=== PATIENT | female | born 1970 | race Hispanic/Latino ===

== ENCOUNTER 2017-03-07 02:37 | Emergency (ER) | payer MEDICAID ==
[2017-03-07 03:10] VITALS: BP 133/73; PULSE 76; RESP 16; TEMP 98; O2SAT 100
--- NOTE | 2017-03-07 03:22 | ED PDOC ---
HPI: Abdomen Time Seen by Provider: 03/07/17 03:17 Chief Complaint (Nursing): Abdominal Pain Chief Complaint (Provider): vomiting and diarrhea History Per: Patient Additional Complaint(s): 47-year-old female presents to emergency department with vomiting and nonbloody , watery diarrhea that started yesterday after patient ate food at a barbecue. Patient is concerned that the food may have been undercooked. Patient unable to keep down any liquids or solids since yesterday. She denies fever or chills. Patient has diffuse abdominal discomfort. Past Medical History Reviewed: Historical Data, Nursing Documentation, Vital Signs Vital Signs: Last Vital Signs Temp 98.0 F 03/07/17 03:07 Pulse 76 03/07/17 03:07 Resp 16 03/07/17 03:07 BP 133/73 03/07/17 03:07 Pulse Ox 100 03/07/17 03:48 - Medical History PMH: Depression, Diabetes - Surgical History Surgical History: Appendectomy, Cholecystectomy, - Family History Family History: States: No Known Family Hx - Living Arrangements Living Arrangements: With Family - Social History Current smoker - smoking cessation education provided: No Alcohol: None Drugs: Denies - Home Medications Home Medications: Ambulatory Orders Medication Instructions Recorded Cyclobenzaprine [Cyclobenzaprine 10 mg PO BID #14 tab 10/25/15 HCl] Ibuprofen [Motrin] 400 mg PO Q6 #30 tab 10/25/15 metFORMIN [glucOPHAGE] 500 mg PO DAILY 10/25/15 Ferrous Sulfate [Feosol] 325 mg PO TID #15 tab 07/25/16 Dicyclomine [Dicyclomine HCl] 10 mg PO QID PRN #15 cap 03/07/17 Ondansetron [Zofran Odt] 4 mg PO ASDIR PRN #15 odt 03/07/17 - Allergies Allergies/Adverse Reactions: Allergies Allergy/AdvReac Type Severity Reaction Status Date / Time No Known Allergies Allergy Verified 08/24/14 14:22 Review of Systems ROS Statement: Except As Marked, All Systems Reviewed And Found Negative Constitutional: Negative for: Fever, Chills Respiratory: Negative for: Cough Gastrointestinal: Positive for: Nausea, Vomiting, Abdominal Pain, Diarrhea. Negative for: Constipation, Melena, Hematochezia, Hematemesis, Rectal Pain Genitourinary Female: Negative for: Dysuria Physical Exam - Reviewed Nursing Documentation Reviewed: Yes Vital Signs Reviewed: Yes - Physical Exam Appears: Positive for: Well, Non-toxic, No Acute Distress Skin: Negative for: Rash Eye Exam: Positive for: Normal appearance Cardiovascular/Chest: Positive for: Regular Rate, Rhythm Respiratory: Positive for: Normal Breath Sounds Gastrointestinal/Abdominal: Positive for: Other (Obese abdomen with minimal tenderness in all 4 quadrants, no distention, no guarding, no rebound, normoactive bowel sounds in all 4 quadrants) Back: Negative for: L CVA Tenderness, R CVA Tenderness Extremity: Positive for: Normal ROM Neurologic/Psych: Positive for: Alert, Oriented - Laboratory Results Result Diagrams: 03/07/17 04:02 03/07/17 04:02 Urine POC: Negative Urine dip results: Positive for: Bilirubin (small). Negative for: Leukocyte Esterase (trace), Blood, Nitrate, Ketones, Glucose, Protein - ECG O2 Sat by Pulse Oximetry: 100 Pulse Ox Interpretation: Normal Medical Decision Making Medical Decision Makin-year-old with vomiting and diarrhea, abdominal exam benign. Plan: CBC CMP Lipase IVF IV zofran IV toradol Urine dip Patient is aware of all diagnostic testing results, all questions answered. Patient now able to tolerate water without further emesis. She states pain and nausea have resolved. Rx given for Zofran and Bentyl. Patient was instructed should plenty of fluids and follow bland diet. Advised follow-up with her doctor in 2-3 days. Disposition - Clinical Impression Clinical Impression: Gastroenteritis - Patient ED Disposition Is Patient to be Admitted: No Counseled Patient/Family Regarding: Studies Performed, Diagnosis, Need For Followup, Rx Given - Disposition Referrals: Evon Ruiz FNP [Advanced Practice Nurse] - Disposition: Routine/Home Disposition Time: 04:25 Condition: STABLE Additional Instructions: Take prescription medications as directed. Drink plenty of fluids and follow dietary instructions. Follow up with primary doctor in 2-3 days. Prescriptions: Dicyclomine [Dicyclomine HCl] 10 mg PO QID PRN #15 cap PRN Reason: Gi Distress Ondansetron [Zofran Odt] 4 mg PO ASDIR PRN #15 odt PRN Reason: Nausea/Vomiting Instructions: Gastroenteritis (ED) Forms: [employer] (Slovak) Print Language: WELSH Results - Lab Results Lab Results: 03/07/17 03/07/17 04:02 04:02 WBC 9.1 D RBC 4.85 Hgb 13.8 D Hct 41.1 MCV 84.7 D MCH 28.5 MCHC 33.6 RDW 15.2 H Plt Count 265 MPV 8.8 Neut % (Auto) 79.2 H Lymph % (Auto) 12.1 L [place] % (Auto) 4.9 Eos % (Auto) 3.3 Baso % (Auto) 0.5 Neut # 7.2 H Lymph # 1.1 [place] # 0.4 Eos # 0.3 Baso # 0.0 Sodium 142 Potassium 4.1 Chloride 105 Carbon Dioxide 20 L Anion Gap 21 H BUN 22 H Creatinine 0.5 L Est GFR ( Amer) > 60 Est GFR (Non-Af Amer) > 60 Random Glucose 109 H Calcium 8.8 Total Bilirubin 0.3 AST 41 H ALT 66 H D Alkaline Phosphatase 77 Total Protein 8.1 Albumin 4.5 Globulin 3.6 Albumin/Globulin Ratio 1.3 Lipase 118
[2017-03-07] MEDS ORDERED: Sodium Chloride 0.9% 1,000 ML IV STA (03:23)
[2017-03-07 04:05] LABS: BASO % 0.5 % (0.0-2.0); EOS # 0.3 K/uL (0.0-0.7); EOS % 3.3 % (0.0-4.0); HEMATOCRIT 41.1 % (34.0-47.0); LYMPH # 1.1 K/uL (1.0-4.3); LYMPH % 12.1 % (20.0-40.0); MEAN CELL VOLUME 84.7 fl (81.0-99.0); MEAN CORPUSCULAR HEMOGLOBIN 28.5 pg (27.0-31.0); MEAN CORPUSCULAR HGB CONC 33.6 g/dL (33.0-37.0); MEAN PLATELET VOLUME 8.8 fl (7.2-11.7); MONO # 0.4 K/uL (0.0-0.8); MONO % 4.9 % (0.0-10.0); NEUT # 7.2 K/uL (1.8-7.0); NEUT % 79.2 % (50.0-75.0); NRBC % 0.1 % (0.0-0.0); RED CELL DISTRIBUTION WIDTH 15.2 % (11.5-14.5); WHITE BLOOD COUNT 9.1 K/uL (4.8-10.8)
[2017-03-07 04:16] LABS: ALB/GLOB RATIO 1.3 (1.0-2.1); ALKALINE PHOSPHATASE 77 U/L (38-126); ALT/SGPT 66 U/L (9-52); AST/SGOT 41 U/L (14-36); BILIRUBIN,TOTAL 0.3 mg/dl (0.2-1.3); BLOOD UREA NITROGEN 22 mg/dl (7-17); CALCIUM 8.8 mg/dL (8.4-10.2); CARBON DIOXIDE 20 mmol/L (22-30); CHLORIDE 105 mmol/L (98-107); GFR AFRICAN-AMERICAN > 60; GLUCOSE,RANDOM 109 mg/dL (65-105); LIPASE 118 U/L (23-300); POTASSIUM 4.1 MMOL/L (3.6-5.0); SODIUM 142 mmol/l (132-148); TOTAL PROTEIN 8.1 G/DL (6.3-8.2)
== END 2017-03-07 04:49 | disposition home or self-care (01) ==
LOC: H.ER 02:37
DX: K52.9 Noninfective gastroenteritis and colitis, unspecified (principal); E11.9 Type 2 diabetes mellitus without complications; F32.9 Major depressive disorder, single episode, unspecified; Z79.84 Long term (current) use of oral hypoglycemic drugs
CPT/HCPCS: 80053; 83690; 85025; 96374; 96375; 99283; J1885; J2405; J7040

== ENCOUNTER 2017-03-07 20:23 | Emergency (ER) | payer MEDICAID ==
[2017-03-07 20:43] VITALS: BP 132/64; PULSE 92; RESP 16; TEMP 98.5; O2SAT 96
[2017-03-07] MEDS ORDERED: Iohexol 240 (50 ml) PO ONE (21:00)
[2017-03-07] MEDS ORDERED: Sodium Chloride 0.9% 1,000 ML IV STA ×2 (21:00→23:40)
[2017-03-07 21:19] LABS: BASO % 0.2 % (0.0-2.0); EOS # 0.1 K/uL (0.0-0.7); EOS % 1.7 % (0.0-4.0); HEMATOCRIT 40.3 % (34.0-47.0); LYMPH # 1.1 K/uL (1.0-4.3); LYMPH % 13.6 % (20.0-40.0); MEAN CELL VOLUME 85.2 fl (81.0-99.0); MEAN CORPUSCULAR HEMOGLOBIN 28.2 pg (27.0-31.0); MEAN CORPUSCULAR HGB CONC 33.1 g/dL (33.0-37.0); MEAN PLATELET VOLUME 8.3 fl (7.2-11.7); MONO # 0.4 K/uL (0.0-0.8); NEUT # 6.6 K/uL (1.8-7.0); NEUT % 79.5 % (50.0-75.0); NRBC % 0.1 % (0.0-0.0); RED CELL DISTRIBUTION WIDTH 15.8 % (11.5-14.5); WHITE BLOOD COUNT 8.3 K/uL (4.8-10.8)
[2017-03-07] MEDS ORDERED: Iohexol 240 (50 ml) ONE (21:19)
[2017-03-07 21:31] LABS: ALB/GLOB RATIO 1.3 (1.0-2.1); ALKALINE PHOSPHATASE 82 U/L (38-126); ALT/SGPT 82 U/L (9-52); AST/SGOT 58 U/L (14-36); BILIRUBIN,TOTAL 0.5 mg/dl (0.2-1.3); BLOOD UREA NITROGEN 13 mg/dl (7-17); CALCIUM 7.8 mg/dL (8.4-10.2); CARBON DIOXIDE 14 mmol/L (22-30); CHLORIDE 108 mmol/L (98-107); GFR AFRICAN-AMERICAN > 60; GLUCOSE,RANDOM 121 mg/dL (65-105); LIPASE 51 U/L (23-300); POTASSIUM 3.7 MMOL/L (3.6-5.0); SODIUM 137 mmol/l (132-148); TOTAL PROTEIN 7.5 G/DL (6.3-8.2)
--- NOTE | 2017-03-07 21:34 | ED PDOC ---
HPI:Nausea, Vomiting, Diarrhea Time Seen by Provider: 03/07/17 20:35 Chief Complaint (Nursing): Dizziness/Lightheaded Chief Complaint (Provider): Vomiting and Diarrhea History Per: Patient History/Exam Limitations: no limitations Onset/Duration Of Symptoms: Hrs (24), Worse Since (24 hrs) Current Symptoms Are (Timing): Still Present Associated Symptoms: Nausea, Vomiting, Diarrhea, Other (generalized body weakness) Additional Complaint(s): Shiva Cook is a 47 year old female, with a past medical history of diabetes , who presents to the emergency department complaining of worsening nausea, vomit, and diarrhea associated with generalized body weakness for the last 24 hours. Patient was seen in this facility approximately 12 hours ago with diagnosed gastroenteritis. 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 Patient reports a worsening diarrhea considerably with 15 to 20 non-bloody episodes. No further medical complaints. PMD: Evon Ruiz Past Medical History Reviewed: Historical Data, Nursing Documentation, Vital Signs Vital Signs: Last Vital Signs Temp 98.5 F 03/07/17 20:39 Pulse 92 H 03/07/17 20:39 Resp 16 03/07/17 20:39 BP 132/64 03/07/17 20:39 Pulse Ox 96 03/07/17 20:39 - Medical History PMH: Depression, Diabetes - Surgical History Surgical History: Appendectomy, Cholecystectomy, - Family History Family History: States: Unknown Family Hx - Social History Current smoker - smoking cessation education provided: No Alcohol: None Drugs: Denies - Home Medications Home Medications: Ambulatory Orders Medication Instructions Recorded Cyclobenzaprine [Cyclobenzaprine 10 mg PO BID #14 tab 10/25/15 HCl] Ibuprofen [Motrin] 400 mg PO Q6 #30 tab 10/25/15 metFORMIN [glucOPHAGE] 500 mg PO DAILY 10/25/15 Ferrous Sulfate [Feosol] 325 mg PO TID #15 tab 07/25/16 Dicyclomine [Dicyclomine HCl] 10 mg PO QID PRN #15 cap 03/07/17 Ondansetron [Zofran Odt] 4 mg PO ASDIR PRN #15 odt 03/07/17 Dicyclomine [Bentyl] 20 mg PO Q12 PRN #20 tab 03/08/17 - Allergies Allergies/Adverse Reactions: Allergies Allergy/AdvReac Type Severity Reaction Status Date / Time No Known Allergies Allergy Verified 08/24/14 14:22 Review of Systems ROS Statement: Except As Marked, All Systems Reviewed And Found Negative Constitutional: Positive for: Weakness (generalized ) Gastrointestinal: Positive for: Nausea, Vomiting, Diarrhea (15 to 20 non-bloody episodes) Physical Exam - Reviewed Nursing Documentation Reviewed: Yes Vital Signs Reviewed: Yes - Physical Exam Appears: Positive for: Non-toxic Head Exam: Positive for: ATRAUMATIC, NORMAL INSPECTION, NORMOCEPHALIC Skin: Positive for: Normal Color, Warm, Dry Eye Exam: Positive for: EOMI, Normal appearance, PERRL Neck: Positive for: Normal, Painless ROM, Supple Cardiovascular/Chest: Positive for: Regular Rate, Rhythm. Negative for: Murmur Respiratory: Positive for: Normal Breath Sounds. Negative for: Respiratory Distress Gastrointestinal/Abdominal: Positive for: Normal Exam, Bowel Sounds, Soft, Tenderness (diffused abdominal) Back: Positive for: Normal Inspection (No midline tenderness). Negative for: L CVA Tenderness, R CVA Tenderness Extremity: Positive for: Normal ROM. Negative for: Pedal Edema, Deformity, Swelling Neurologic/Psych: Positive for: Alert, Oriented. Negative for: Motor/Sensory Deficits - Laboratory Results Result Diagrams: 03/07/17 21:15 03/07/17 21:15 - ECG O2 Sat by Pulse Oximetry: 96 (RA) Pulse Ox Interpretation: Normal Medical Decision Making Medical Decision Making: Initial Impression: 47 y/o female with persistent vomiting and diarrhea Initial Plan: --Abd Pelvis PO & IV Contrast [CT] --CMP --Lipase --Urine dipstick --Urine --CBC w/ differential --Bentyl 20 mg PO --Omnipaque 240 50 ml PO --NS IV 1,000 ml @ 1,000 mls/hr --Zofran Inj 4 mg IV --Urinalysis --reevaluation [facility] Final Radiology Report Call: [phone] assistance Online chat: [email or web address] Patient Name: SHIVA COOK (Age): 1970 47 Gender: F Date of Exam: 03/07/2017 Referring Physician: Adriano Chamberlain # of Images: [phone] Ordered As: CT ABD PELVIS PO IV CONTRAST Page 1 of 2 EXAM: CT Abdomen and Pelvis With Intravenous Contrast CLINICAL HISTORY: 47 years old, female; Pain; Abdominal pain; Generalized; Prior surgery; Surgery date: 6+ months; Surgery type: Gall bladder removed; Additional info: Abd pain, diarrhea TECHNIQUE: Axial computed tomography images of the abdomen and pelvis with intravenous contrast. All CT scans at this facility use one or more dose reduction techniques, viz.: automated exposure control; ma/kV adjustment per patient size (including targeted exams where dose is matched to indication; i.e. head); or iterative reconstruction technique. Coronal and sagittal reformatted images were created and reviewed. CONTRAST: 95 mL of [id number] administered intravenously. COMPARISON: CT - ABD PELVIS PO IV CONTRAST 07/25/2016 6:05:27 PM FINDINGS: Limitations: Motion artifact - mild. Lower thorax: No acute findings. ABDOMEN: Liver: Fatty infiltration. Gallbladder and bile ducts: Cholecystectomy. No ductal dilation. Pancreas: No ductal dilation. No mass. Spleen: No splenomegaly. Adrenals: No mass. Kidneys and ureters: No mass. No hydronephrosis. Stomach and bowel: No definite mural thickening. No obstruction. Appendix: Appendectomy. PELVIS: Bladder: Unremarkable. Reproductive: 1.5 x 0.9 x 1.4 cm peripherally enhancing hypodensity with crenulated margins within RIGHT ovary. ABDOMEN and PELVIS: Intraperitoneal space: No significant fluid collection. No free air. Bones/joints: No acute fracture. Soft tissues: Unremarkable. Vasculature: Unremarkable. No aneurysm. Lymph nodes: No pathologically enlarged lymph nodes. IMPRESSION: 1. Involuting or ruptured RIGHT ovarian follicle/cyst. 2. Incidental/non-acute findings are described above. Thank you for allowing us to participate in the care of your patient. Dictated and Authenticated by: Demetrius Reaves MD 03/08/2017 12:09 AM Eastern Time ([place] & [place]) 00:25: on reevaluation the patient reports improvement of symptoms. Labs reviewed and discussed with patient, labs revealed no clinically significant findings. Patient is stable for discharge. Diagnosis: gastroenteritis. Scribe Attestation: Documented by Kevin Salcedo and Dulce Douglas, acting as a scribe for Adriano Chamberlain MD Provider Scribe Attestation: All medical record entries made by the Scribe were at my direction and personally dictated by me. I have reviewed the chart and agree that the record accurately reflects my personal performance of the history, physical exam, medical decision making, and the department course for this patient. I have also personally directed, reviewed, and agree with the discharge instructions and disposition. Disposition - Clinical Impression Clinical Impression: Gastroenteritis, Dehydration Doctor Will See Patient In The: Office Counseled Patient/Family Regarding: Studies Performed, Diagnosis, Need For Followup - Disposition Disposition: Routine/Home Disposition Time: 00:20 Condition: STABLE Prescriptions: Dicyclomine [Bentyl] 20 mg PO Q12 PRN #20 tab PRN Reason: abdominal pain/diarrhea Forms: [facility] [employer] (Sierra Leonean) Print Language: BELGIAN - POA Present On Arrival: None
[2017-03-07 21:42] LABS: RBC URINE 3 /hpf (0-3); URINE BACTERIA RARE (<OCC); URINE BILIRUBIN NEGATIVE (NEGATIVE); URINE BLOOD NEGATIVE (NEGATIVE); URINE COLOR YELLOW (YELLOW); URINE GLUCOSE (UA) NEG (Normal); URINE KETONE NEGATIVE (NEGATIVE); URINE LEUKOCYTE ESTERASE NEG Leu/uL (Negative); URINE PROTEIN 30 mg/dL (NEGATIVE); URINE UROBILINOGEN 0.2-1.0 mg/dL (0.2-1.0); WBC URINE 2 /hpf (0-5)
[2017-03-07] MEDS ORDERED: Sodium Chloride 0.9% 50 ML IV ONE (23:36)
[2017-03-07] MEDS ORDERED: Iohexol 300 100 ML IJ ONE (23:36)
--- NOTE | 2017-03-08 00:09 | CT ---
EXAM: CT Abdomen and Pelvis With Intravenous Contrast CLINICAL HISTORY: 47 years old, female; Pain; Abdominal pain; Generalized; Prior surgery; Surgery date: 6+ months; Surgery type: Gall bladder removed; Additional info: Abd pain, diarrhea TECHNIQUE: Axial computed tomography images of the abdomen and pelvis with intravenous contrast. All CT scans at this facility use one or more dose reduction techniques, viz.: automated exposure control; ma/kV adjustment per patient size (including targeted exams where dose is matched to indication; i.e. head); or iterative reconstruction technique. Coronal and sagittal reformatted images were created and reviewed. CONTRAST: 95 mL of [id number] administered intravenously. COMPARISON: CT - ABD PELVIS PO IV CONTRAST 07/25/2016 6:05:27 PM FINDINGS: Limitations: Motion artifact - mild. Lower thorax: No acute findings. ABDOMEN: Liver: Fatty infiltration. Gallbladder and bile ducts: Cholecystectomy. No ductal dilation. Pancreas: No ductal dilation. No mass. Spleen: No splenomegaly. Adrenals: No mass. Kidneys and ureters: No mass. No hydronephrosis. Stomach and bowel: No definite mural thickening. No obstruction. Appendix: Appendectomy. PELVIS: Bladder: Unremarkable. Reproductive: 1.5 x 0.9 x 1.4 cm peripherally enhancing hypodensity with crenulated margins within RIGHT ovary. ABDOMEN and PELVIS: Intraperitoneal space: No significant fluid collection. No free air. Bones/joints: No acute fracture. Soft tissues: Unremarkable. Vasculature: Unremarkable. No aneurysm. Lymph nodes: No pathologically enlarged lymph nodes. IMPRESSION: 1. Involuting or ruptured RIGHT ovarian follicle/cyst. 2. Incidental/non-acute findings are described above.
== END 2017-03-08 01:10 | disposition home or self-care (01) ==
LOC: H.ER 20:23
DX: K52.9 Noninfective gastroenteritis and colitis, unspecified (principal); E86.0 Dehydration; E11.9 Type 2 diabetes mellitus without complications; Z79.84 Long term (current) use of oral hypoglycemic drugs; F32.9 Major depressive disorder, single episode, unspecified; N83.201 Unspecified ovarian cyst, right side
CPT/HCPCS: 74177; 80053; 81003; 81025; 83690; 85025; 96374; 99284; J2270; J2405; J7040; Q9966; Q9967

== ENCOUNTER 2017-03-24 22:44 | Emergency (ER) | payer MEDICAID ==
[2017-03-24 23:02] VITALS: BP 112/53; PULSE 63; RESP 20
[2017-03-24] MEDS ORDERED: Sodium Chloride 0.9% 1,000 ML IV STA (23:18)
--- NOTE | 2017-03-24 23:22 | ED PDOC ---
HPI: Headache Time Seen by Provider: 03/24/17 23:07 Chief Complaint (Nursing): Headache Chief Complaint (Provider): headache History Per: Patient, Family History/Exam Limitations: no limitations Onset/Duration Of Symptoms: Days (4), Waxing/Waning Current Symptoms Are (Timing): Still Present Associated Symptoms: Photophobia Additional History Per: Patient, Family Additional Complaint(s): 47 y/o female history of diabetes presents with intermittent headache x 4 days. Associated photophobia, and dizziness when getting up and ambulating. Patient taking Tylenol without improvement; states she is not able to sleep at night. Denies fever, neck pain, nausea/vomiting, chest pain, shortness of breath , palpitations, abdominal pain. Past Medical History Reviewed: Historical Data, Nursing Documentation, Vital Signs Vital Signs: Last Vital Signs Temp 98.3 F 03/24/17 22:59 Pulse 63 03/24/17 22:59 Resp 20 03/24/17 22:59 BP 112/53 L 03/24/17 22:59 Pulse Ox 100 03/24/17 22:59 - Medical History PMH: Depression, Diabetes - Surgical History Surgical History: Appendectomy, Cholecystectomy, - Family History Family History: States: Unknown Family Hx - Home Medications Home Medications: Ambulatory Orders Medication Instructions Recorded Cyclobenzaprine [Cyclobenzaprine 10 mg PO BID #14 tab 10/25/15 HCl] Ibuprofen [Motrin] 400 mg PO Q6 #30 tab 10/25/15 metFORMIN [glucOPHAGE] 500 mg PO DAILY 10/25/15 Ferrous Sulfate [Feosol] 325 mg PO TID #15 tab 07/25/16 Dicyclomine [Dicyclomine HCl] 10 mg PO QID PRN #15 cap 03/07/17 Ondansetron [Zofran Odt] 4 mg PO ASDIR PRN #15 odt 03/07/17 Dicyclomine [Bentyl] 20 mg PO Q12 PRN #20 tab 03/08/17 Meclizine [Meclizine*] 25 mg PO TID PRN #21 tab 03/25/17 Naproxen [Naprosyn] 500 mg PO Q12 PRN #20 tablet 03/25/17 - Allergies Allergies/Adverse Reactions: Allergies Allergy/AdvReac Type Severity Reaction Status Date / Time No Known Allergies Allergy Verified 08/24/14 14:22 Review of Systems ROS Statement: Except As Marked, All Systems Reviewed And Found Negative Neurological: Positive for: Headache, Dizziness Physical Exam - Reviewed Nursing Documentation Reviewed: Yes Vital Signs Reviewed: Yes - Physical Exam Appears: Positive for: Well, Non-toxic, No Acute Distress Head Exam: Positive for: ATRAUMATIC, NORMAL INSPECTION, NORMOCEPHALIC Skin: Positive for: Normal Color Eye Exam: Positive for: Normal appearance, EOMI, PERRL ENT: Positive for: Normal ENT Inspection Cardiovascular/Chest: Positive for: Regular Rate, Rhythm Respiratory: Positive for: Normal Breath Sounds Gastrointestinal/Abdominal: Positive for: Normal Exam Back: Positive for: Normal Inspection Extremity: Positive for: Normal ROM Neurologic/Psych: Positive for: Alert, Oriented - Laboratory Results Result Diagrams: 03/24/17 23:50 03/24/17 23:50 - ECG ECG: Positive for: Viewed By Me (reviewed by ED attending) ECG Rhythm: Positive for: Sinus Rhythm O2 Sat by Pulse Oximetry: 100 Disposition - Clinical Impression Clinical Impression: Headache, Dizziness - Patient ED Disposition Is Patient to be Admitted: No Counseled Patient/Family Regarding: Studies Performed, Diagnosis, Need For Followup, Rx Given - Disposition Disposition: Routine/Home Disposition Time: 01:24 Condition: IMPROVED Prescriptions: Meclizine [Meclizine*] 25 mg PO TID PRN #21 tab PRN Reason: Dizziness Naproxen [Naprosyn] 500 mg PO Q12 PRN #20 tablet PRN Reason: Pain, Moderate (4-7) Instructions: Acute Headache (ED), Dizziness (ED) Print Language: [place] ISLANDER
[2017-03-25 00:02] LABS: BASO % 0.8 % (0.0-2.0); EOS # 0.2 K/uL (0.0-0.7); EOS % 3.8 % (0.0-4.0); HEMATOCRIT 36.2 % (34.0-47.0); LYMPH # 3.1 K/uL (1.0-4.3); LYMPH % 48.5 % (20.0-40.0); MEAN CELL VOLUME 82.9 fl (81.0-99.0); MEAN CORPUSCULAR HEMOGLOBIN 27.9 pg (27.0-31.0); MEAN CORPUSCULAR HGB CONC 33.6 g/dL (33.0-37.0); MEAN PLATELET VOLUME 8.3 fl (7.2-11.7); MONO # 0.5 K/uL (0.0-0.8); MONO % 7.4 % (0.0-10.0); NEUT # 2.5 K/uL (1.8-7.0); NEUT % 39.5 % (50.0-75.0); NRBC % 0.2 % (0.0-0.0); RED CELL DISTRIBUTION WIDTH 15.2 % (11.5-14.5); WHITE BLOOD COUNT 6.4 K/uL (4.8-10.8)
[2017-03-25 00:09] LABS: ALB/GLOB RATIO 1.4 (1.0-2.1); ALKALINE PHOSPHATASE 69 U/L (38-126); ALT/SGPT 42 U/L (9-52); AST/SGOT 31 U/L (14-36); BILIRUBIN,TOTAL 0.2 mg/dl (0.2-1.3); BLOOD UREA NITROGEN 19 mg/dl (7-17); CALCIUM 8.7 mg/dL (8.4-10.2); CARBON DIOXIDE 24 mmol/L (22-30); CHLORIDE 105 mmol/L (98-107); GFR AFRICAN-AMERICAN > 60; GLUCOSE,RANDOM 106 mg/dL (65-105); POTASSIUM 3.8 MMOL/L (3.6-5.0); SODIUM 139 mmol/l (132-148); TOTAL PROTEIN 7.3 G/DL (6.3-8.2)
[2017-03-25 01:31] VITALS: TEMP 98.2; O2SAT 99
--- NOTE | 2017-03-25 10:39 | CARD ---
APPROVED REPORT EKG Measurement Heart [id number] <Conclusion> Normal sinus rhythm Possible Left atrial enlargement Borderline ECG
== END 2017-03-25 01:29 | disposition home or self-care (01) ==
LOC: H.ER 22:44
DX: R51 Headache (principal); R42 Dizziness and giddiness; E11.9 Type 2 diabetes mellitus without complications; F32.9 Major depressive disorder, single episode, unspecified; Z79.84 Long term (current) use of oral hypoglycemic drugs
CPT/HCPCS: 80053; 81025; 82948; 85025; 93005; 96360; 99285; J2765; J7040

== ENCOUNTER 2017-12-14 18:29 | Emergency (ER) | payer MEDICAID ==
--- NOTE | 2017-12-14 19:00 | ED PDOC ---
HPI: Abdomen Time Seen by Provider: 12/14/17 18:48 Chief Complaint (Nursing): Abdominal Pain Chief Complaint (Provider): Abdominal Pain History Per: Patient History/Exam Limitations: no limitations Onset/Duration Of Symptoms: Days (x4) Current Symptoms Are (Timing): Still Present Additional Complaint(s): 47 year old female with pmHx of diabetes, presents to the ED with a complaint of lower abdominal pain associated with difficulty urination, burning, general bodyaches, lower back pain, vaginal pain and itchiness, ongoing for 4 days. She denies any fever, chills, diarrhea or vomiting. PMD: Dr. Evon Ruiz Past Medical History Reviewed: Historical Data, Nursing Documentation, Vital Signs Vital Signs: Last Vital Signs Temp 97.9 F 12/14/17 18:38 Pulse 67 12/14/17 18:38 Resp 18 12/14/17 18:38 BP 124/76 12/14/17 18:38 Pulse Ox 100 12/14/17 23:25 - Medical History PMH: Anemia, Depression, Diabetes Other PMH: fibroma - Surgical History Surgical History: Appendectomy, Cholecystectomy, - Family History Family History: States: Unknown Family Hx - Home Medications Home Medications: Ambulatory Orders Medication Instructions Recorded Cyclobenzaprine [Cyclobenzaprine 10 mg PO BID #14 tab 10/25/15 HCl] Ibuprofen [Motrin] 400 mg PO Q6 #30 tab 10/25/15 metFORMIN [glucOPHAGE] 500 mg PO DAILY 10/25/15 Ferrous Sulfate [Feosol] 325 mg PO TID #15 tab 07/25/16 Dicyclomine [Dicyclomine HCl] 10 mg PO QID PRN #15 cap 03/07/17 Ondansetron [Zofran Odt] 4 mg PO ASDIR PRN #15 odt 03/07/17 Dicyclomine [Bentyl] 20 mg PO Q12 PRN #20 tab 03/08/17 Meclizine [Meclizine*] 25 mg PO TID PRN #21 tab 03/25/17 Naproxen [Naprosyn] 500 mg PO Q12 PRN #20 tablet 03/25/17 Docusate Sodium [Colace] 100 mg PO BID #30 capsule 12/14/17 Nitrofurantoin Macrocrystals 100 mg PO BID #14 cap 12/14/17 [Macrobid] - Allergies Allergies/Adverse Reactions: Allergies Allergy/AdvReac Type Severity Reaction Status Date / Time No Known Allergies Allergy Verified 12/14/17 18:38 Review of Systems ROS Statement: Except As Marked, All Systems Reviewed And Found Negative Constitutional: Positive for: Other (general bodyache). Negative for: Fever, Chills Gastrointestinal: Positive for: Abdominal Pain (lower). Negative for: Vomiting , Diarrhea Genitourinary Female: Positive for: Dysuria (burning), Other (vaginal pain with itching) Musculoskeletal: Positive for: Back Pain (lower) Physical Exam - Reviewed Nursing Documentation Reviewed: Yes Vital Signs Reviewed: Yes - Physical Exam Appears: Positive for: Well, Non-toxic, No Acute Distress Head Exam: Positive for: ATRAUMATIC, NORMAL INSPECTION, NORMOCEPHALIC Skin: Positive for: Normal Color Eye Exam: Positive for: Normal appearance ENT: Positive for: Normal ENT Inspection Neck: Positive for: Normal Cardiovascular/Chest: Positive for: Regular Rate, Rhythm. Negative for: Murmur Respiratory: Positive for: Normal Breath Sounds. Negative for: Respiratory Distress Gastrointestinal/Abdominal: Positive for: Soft, Tenderness (suprapubic) Back: Positive for: Vertebral Tenderness (lumbar). Negative for: L CVA Tenderness, R CVA Tenderness Extremity: Positive for: Normal ROM (upper/lower) Neurologic/Psych: Positive for: Alert (x3), Oriented. Negative for: Motor/ Sensory Deficits - Laboratory Results Result Diagrams: 12/14/17 19:33 12/14/17 19:33 Urine POC: Negative - ECG O2 Sat by Pulse Oximetry: 100 (RA) Pulse Ox Interpretation: Normal - Progress ED Course And Treament: Time: 1935 --Urine: negative for active infection. Re-evaluation Time: 23:27 Condition: Re-examined, Improved Medical Decision Making Medical Decision Making: Initial Impression: Suprapubic pain; Dysuria Differential Diagnosis: UTI; Kidney stones; uterine fibroids r/o pregnancy5 Initial Plan: * BMP * CPK * Urine * Urine dipstick * CBC * UA 23:15 Abdomen/Pelvis CT FINDINGS: Lower thorax: Mild bilateral lower lobe atelectasis possible patchy groundglass infiltrates. ABDOMEN: Liver: The liver measures 17.9 cm at mid clavicular line. The liver attenuation is 80 Hounsfield units and the spleen is 104. Gallbladder and bile ducts: Status post cholecystectomy. Pancreas: Normal. No ductal dilation. Spleen: Normal. No splenomegaly. Adrenals: Normal. No mass. Kidneys and ureters: Normal. No hydronephrosis. Stomach and bowel: Normal. No obstruction. No mucosal thickening. Appendix: There are no changes of appendicitis. A normal appendix is not seen. PELVIS: Bladder: Unremarkable as visualized. Reproductive: Unremarkable as visualized. ABDOMEN and PELVIS: Intraperitoneal space: Normal. No free air. No significant fluid collection. Bones/joints: No acute fracture. No dislocation. Soft tissues: Unremarkable. Vasculature: Normal. No abdominal aortic aneurysm. Lymph nodes: Normal. No enlarged lymph nodes. IMPRESSION: 1. There has been little change from 03/07/2017. 2. Status post cholecystectomy. 3. Mild bilateral lower lobe atelectasis and question of minimal patchy ground glass infiltrate which is slightly increased since the prior study. 4. Mild hepatomegaly. Scribe Attestation: Documented by Angela Chun, acting as a scribe for Shanita Sierra MD. Provider Scribe Attestation: All medical record entries made by the Scribe were at my direction and personally dictated by me. I have reviewed the chart and agree that the record accurately reflects my personal performance of the history, physical exam, medical decision making, and the department course for this patient. I have also personally directed, reviewed, and agree with the discharge instructions and disposition. Disposition - Clinical Impression Clinical Impression: Abdominal pain in female, Urinary tract infection, Constipated - Patient ED Disposition Is Patient to be Admitted: No Doctor Will See Patient In The: Office Counseled Patient/Family Regarding: Studies Performed, Diagnosis, Need For Followup - Disposition Referrals: [facility] [Outside] Disposition: Routine/Home Disposition Time: 23:27 Condition: GOOD Additional Instructions: Take your medications as instructed. Follow up with your PCP in 2-3 days. Prescriptions: Docusate Sodium [Colace] 100 mg PO BID #30 capsule Nitrofurantoin Macrocrystals [Macrobid] 100 mg PO BID #14 cap Instructions: Urinary Tract Infections in Adults, Constipation, Adult (DC)
[2017-12-14 19:42] LABS: BASO # 0.1 K/uL (0.0-0.2); BASO % 0.9 % (0.0-2.0); EOS # 0.2 K/uL (0.0-0.7); EOS % 3.9 % (0.0-4.0); HEMOGLOBIN 11.9 g/dL (12.0-16.0); LYMPH # 2.7 K/uL (1.0-4.3); LYMPH % 43.8 % (20.0-40.0); MEAN CELL VOLUME 84.1 fl (81.0-99.0); MEAN CORPUSCULAR HEMOGLOBIN 28.2 pg (27.0-31.0); MEAN CORPUSCULAR HGB CONC 33.5 g/dL (33.0-37.0); MEAN PLATELET VOLUME 8.5 fl (7.2-11.7); MONO # 0.6 K/uL (0.0-0.8); NEUT # 2.6 K/uL (1.8-7.0); NEUT % 41.4 % (50.0-75.0); NRBC % 0.1 % (0.0-0.0); RBC 4.23 Mil/uL (3.80-5.20); RED CELL DISTRIBUTION WIDTH 13.2 % (11.5-14.5); WHITE BLOOD COUNT 6.2 K/uL (4.8-10.8)
[2017-12-14 19:54] LABS: BLOOD UREA NITROGEN 12 mg/dl (7-17); CALCIUM 9.2 mg/dL (8.4-10.2); GFR AFRICAN-AMERICAN > 60; GFR NON-AFRICAN AMERICAN > 60; SQUAMOUS EPITHIAL 1 /hpf (0-5); URINE BILIRUBIN NEGATIVE (NEGATIVE); URINE BLOOD NEGATIVE (NEGATIVE); URINE CLARITY CLEAR (Clear); URINE COLOR STRAW (YELLOW); URINE GLUCOSE (UA) NEG (Normal); URINE LEUKOCYTE ESTERASE NEG Leu/uL (Negative); URINE PROTEIN NEGATIVE (NEGATIVE); URINE UROBILINOGEN 0.2-1.0 mg/dL (0.2-1.0)
[2017-12-14] MEDS ORDERED: Iohexol 300 100 ML IJ ONE (21:46)
[2017-12-14] MEDS ORDERED: Sodium Chloride 0.9% 50 ML IV ONE (21:46)
[2017-12-14 23:49] VITALS: BP 125/65; PULSE 70; RESP 15; TEMP 98.6; O2SAT 99
--- NOTE | 2017-12-15 10:45 | CT ---
Date of service: 12/14/2017 PROCEDURE: CT Abdomen and Pelvis with contrast HISTORY: lower abd pain dysuria COMPARISON: CT abdomen and pelvis 03/07/2017 TECHNIQUE: Contrast dose: 72 mL of Omnipaque 300 (as per technologist's additional note) Radiation dose: Total exam DLP = 831 mGy-cm. This CT exam was performed using one or more of the following dose reduction techniques: Automated exposure control, adjustment of the mA and/or kV according to patient size, and/or use of iterative reconstruction technique. FINDINGS: LOWER THORAX: Minimal patchy dependent ground-glass opacities compatible with uneven ventilation profusion and/or areas of air trapping. Some concomitant subpleural trace atelectatic changes hypo ventilatory types are also compatible with this. No significant change in appearance allowing for differences with earlier exam LIVER: Diffuse fatty liver. Mild prominence of the liver midclavicular line approximately 17.6 cm - No gross lesion or ductal dilatation. GALLBLADDER AND BILE DUCTS: Gallbladder fossa clips compatible with prior cholecystectomy. No dilated ducts PANCREAS: Unremarkable. No gross lesion or ductal dilatation. SPLEEN: Unremarkable. ADRENALS: Unremarkable. No mass. KIDNEYS AND URETERS: Unremarkable. No hydronephrosis. No solid mass. VASCULATURE: Unremarkable. No aortic aneurysm. BOWEL: Moderate stool retention. Few rectosigmoid diverticulitis without diverticulitis. . No obstruction. There is less gas within the stool contents in the inner portion of the cecum -this appearance is nonspecific. Buckled mural masses can sometimes appear this way. Stool without significant gas here also can simulate this. No pericecal inflammatory changes. These findings are nonspecific. APPENDIX: Not visualized. Prior history states appendectomy. PERITONEUM: Unremarkable. No free fluid. No free air. LYMPH NODES: Unremarkable. No enlarged lymph nodes. BLADDER: Unremarkable. REPRODUCTIVE: Uterus tip towards the left. Central uterine cavity hypodense prominence- compatible with a 47 year old patient's phase of menses Bilateral physiologic appearing ovarian follicular cystic like changes suggested right greater than left. BONES: No acute fracture. Bilateral sacroiliac sclerotic mild arthrosis OTHER FINDINGS: None. IMPRESSION: No bowel obstruction or diverticulitis. Few rectosigmoid diverticuli. Moderate stool retention. Few rectosigmoid diverticulitis without diverticulitis. . No obstruction. There is less gas within the stool contents in the inner portion of the cecum -this appearance is nonspecific. Buckled mural masses can sometimes appear this way. Stool without significant gas here also can simulate this. No pericecal inflammatory changes. These findings are nonspecific. Borderline mild hepatomegaly with prominent Zoie's lobe -similar status. Hepatic steatosis similar status Status postcholecystectomy. No interval dilated ducts. History of prior appendectomy per prior report current appendix not identified compatible with prior report Other findings -as above. Concordant results (preliminary interpretation) provided by [facility]. Please note the additional nonspecific an inconclusive reference to the inner cecal wall its clinical significance, if any is unknown.
== END 2017-12-14 23:49 | disposition home or self-care (01) ==
LOC: H.ER 18:29
DX: N39.0 Urinary tract infection, site not specified (principal); K59.00 Constipation, unspecified; E11.9 Type 2 diabetes mellitus without complications; Z79.84 Long term (current) use of oral hypoglycemic drugs; K57.32 Diverticulitis of large intestine without perforation or abscess without bleeding; Z90.49 Acquired absence of other specified parts of digestive tract
CPT/HCPCS: 74177; 80048; 81003; 81025; 82550; 85025; 99284; Q9967

== ENCOUNTER 2018-06-03 04:09 | Emergency (ER) | payer MEDICAID ==
[2018-06-03 04:39] VITALS: O2SAT 98
[2018-06-03] MEDS ORDERED: Albuterol-Ipratrop 3 mg / 0.5 (3 ml) UD INH STA (05:00)
[2018-06-03] MEDS ORDERED: Promethazine/Cod 6.25mg-10mg/5ml Syr UD PO STA (05:01)
--- NOTE | 2018-06-03 05:06 | ED PDOC ---
HPI: CCC, URI, Sore Throat Time Seen by Provider: 06/03/18 04:45 Chief Complaint (Nursing): Cough, Cold, Congestion Chief Complaint (Provider): cough History Per: Patient History/Exam Limitations: no limitations Onset/Duration Of Symptoms: Persistent (x1 week), Worse Since (today) Current Symptoms Are (Timing): Still Present Additional Complaint(s): 48 year old female with pmHx of diabetes, presents to ED with a complaint of dry cough ongoing for 1 week but worsen today with productive yellow sputum. She reports cough is exacerbated when she is lying down. Patient denies any fever, chills, nausea, or vomiting. PCP: Dr. Evon Ruiz Past Medical History Reviewed: Historical Data, Nursing Documentation, Vital Signs Vital Signs: Last Vital Signs Temp 97.8 F 06/03/18 04:36 Pulse 66 06/03/18 04:36 Resp 19 06/03/18 04:36 BP 126/76 06/03/18 04:36 Pulse Ox 98 06/03/18 04:36 - Medical History PMH: Anemia, Depression, Diabetes - Surgical History Surgical History: Appendectomy, Cholecystectomy, - Family History Family History: States: Unknown Family Hx - Social History Current smoker - smoking cessation education provided: No Alcohol: None Drugs: Denies - Home Medications Home Medications: Ambulatory Orders Medication Instructions Recorded Cyclobenzaprine [Cyclobenzaprine 10 mg PO BID #14 tab 10/25/15 HCl] Ibuprofen [Motrin] 400 mg PO Q6 #30 tab 10/25/15 metFORMIN [glucOPHAGE] 500 mg PO DAILY 10/25/15 Ferrous Sulfate [Feosol] 325 mg PO TID #15 tab 07/25/16 Dicyclomine [Dicyclomine HCl] 10 mg PO QID PRN #15 cap 03/07/17 Ondansetron [Zofran Odt] 4 mg PO ASDIR PRN #15 odt 03/07/17 Dicyclomine [Bentyl] 20 mg PO Q12 PRN #20 tab 03/08/17 Meclizine [Meclizine*] 25 mg PO TID PRN #21 tab 03/25/17 Naproxen [Naprosyn] 500 mg PO Q12 PRN #20 tablet 03/25/17 Docusate Sodium [Colace] 100 mg PO BID #30 capsule 12/14/17 Nitrofurantoin Macrocrystals 100 mg PO BID #14 cap 12/14/17 [Macrobid] Albuterol Sulfate [Proair Hfa] 0.09 mg IH Q6 PRN #1 inh 06/03/18 Azithromycin [Zithromax] 250 mg PO QAM #1 pkg 06/03/18 Benzonatate [Tessalon Perle] 100 mg PO TID PRN #15 capsule 06/03/18 predniSONE [predniSONE Tab] 60 mg PO QAM #12 tab 06/03/18 - Allergies Allergies/Adverse Reactions: Allergies Allergy/AdvReac Type Severity Reaction Status Date / Time No Known Allergies Allergy Verified 06/03/18 04:39 Review of Systems ROS Statement: Except As Marked, All Systems Reviewed And Found Negative Constitutional: Negative for: Fever, Chills Respiratory: Positive for: Cough (dry), Sputum (yellow) Gastrointestinal: Negative for: Nausea, Vomiting Physical Exam - Reviewed Nursing Documentation Reviewed: Yes Vital Signs Reviewed: Yes - Physical Exam Appears: Positive for: No Acute Distress Head Exam: Positive for: ATRAUMATIC, NORMAL INSPECTION, NORMOCEPHALIC Skin: Positive for: Normal Color Eye Exam: Positive for: Normal appearance ENT: Positive for: Normal ENT Inspection. Negative for: Pharyngeal Erythema Neck: Positive for: Normal, Supple Cardiovascular/Chest: Positive for: Regular Rate, Rhythm, Chest Non Tender Respiratory: Positive for: Decreased Breath Sounds (air entry at bases). Negative for: Wheezing, Respiratory Distress Gastrointestinal/Abdominal: Positive for: Normal Exam, Soft Back: Positive for: Normal Inspection Extremity: Positive for: Normal ROM (upper/lower) Neurologic/Psych: Positive for: Alert, Oriented. Negative for: Motor/Sensory Deficits - ECG O2 Sat by Pulse Oximetry: 98 (RA) Pulse Ox Interpretation: Normal Medical Decision Making Medical Decision Making: Initial Impression: 48 year old female with cough. Initial Plan: * EKG * Urine * CXR * Duoneb 6ml INH * Phenergan/codeine oral syrup 10ml PO * Influenza AB Time: 0550 --CXR: no active disease noted on wet read. (-) Influenza. Upon provider reevaluation, patient is medically stable, reports marketable improvement, and requires no further treatment in the ED at this time. Patient will be discharged home. Counseling was provided and all questions were answered regarding diagnosis. There is agreement to discharge plan. Return if symptoms persist or worsen. Clinical Impression: Bronchitis Scribe Attestation: Documented by Angela Chun, acting as a scribe for Adriano Chamberlain MD. Provider Scribe Attestation: All medical record entries made by the Scribe were at my direction and personally dictated by me. I have reviewed the chart and agree that the record accurately reflects my personal performance of the history, physical exam, medical decision making, and the department course for this patient. I have also personally directed, reviewed, and agree with the discharge instructions and disposition. Disposition - Clinical Impression Clinical Impression: Bronchitis - Patient ED Disposition Is Patient to be Admitted: No Counseled Patient/Family Regarding: Studies Performed, Diagnosis, Rx Given - Disposition Disposition: Routine/Home Disposition Time: 05:50 Condition: IMPROVED Prescriptions: Albuterol Sulfate [Proair Hfa] 0.09 mg IH Q6 PRN #1 inh PRN Reason: Shortness Of Breath Azithromycin [Zithromax] 250 mg PO QAM #1 pkg Benzonatate [Tessalon Perle] 100 mg PO TID PRN #15 capsule PRN Reason: Cough predniSONE [predniSONE Tab] 60 mg PO QAM #12 tab Instructions: Acute Bronchitis Forms: [employer] [facility] (South Korean) Print Language: PAKISTANI
[2018-06-03] MEDS ORDERED: Albuterol-Ipratrop 3 mg / 0.5 (3 ml) UD ONE (05:14)
[2018-06-03] MEDS ORDERED: Promethazine/Cod 6.25mg-10mg/5ml Syr UD ONE (05:14)
[2018-06-03 06:07] VITALS: BP 119/70; PULSE 70; RESP 16; TEMP 98.1
--- NOTE | 2018-06-03 08:05 | RAD ---
Date of service: 06/03/2018 HISTORY: cough COMPARISON: Chest radiographs 05/18/2014. TECHNIQUE: Chest PA and lateral FINDINGS: LUNGS: No active pulmonary disease. PLEURA: No significant pleural effusion identified. No pneumothorax apparent. CARDIOVASCULAR: No aortic atherosclerotic calcification present. Normal cardiac size. No pulmonary vascular congestion. OSSEOUS STRUCTURES: No significant abnormalities. VISUALIZED UPPER ABDOMEN: Normal. OTHER FINDINGS: None. IMPRESSION: No interval acute cardiopulmonary disease appreciated.
--- NOTE | 2018-06-03 20:45 | CARD ---
APPROVED REPORT Date of service: 06/03/2018 EKG Measurement Heart [id number] <Conclusion> Normal sinus rhythm Normal ECG
== END 2018-06-03 06:07 | disposition home or self-care (01) ==
LOC: H.ER 04:09
DX: J40 Bronchitis, not specified as acute or chronic (principal); E11.9 Type 2 diabetes mellitus without complications; Z79.84 Long term (current) use of oral hypoglycemic drugs; Z79.899 Other long term (current) drug therapy; Z86.59 Personal history of other mental and behavioral disorders

== ENCOUNTER 2018-08-27 23:08 | Emergency (ER) | payer MEDICAID ==
[2018-08-27 23:58] VITALS: TEMP 98.7; O2SAT 100
[2018-08-28] MEDS ORDERED: DiphenhydrAMINE 50 mg/ml Inj IV STA (02:52)
--- NOTE | 2018-08-28 03:00 | ED PDOC ---
HPI: Skin/Bite Injury Time Seen by Provider: 08/28/18 02:11 Chief Complaint (Nursing): Abnormal Skin Integrity Chief Complaint (Provider): rash History Per: Patient History/Exam Limitations: no limitations Onset/Duration Of Symptoms: Days (6) Current Symptoms Are (Timing): Still Present Quality Of Symptoms: Itching Severity: Moderate Additional Complaint(s): Patient is a 48 year old female with PMHx diabetes c/o 6 days diffuse pruritic rash that started after she started Neurontin. She denies any other kn own allergen exposure and has no associated fever/cough/SOB or chest pain. Past Medical History Reviewed: Historical Data, Nursing Documentation, Vital Signs Vital Signs: Last Vital Signs Temp 98.7 F 08/27/18 23:52 Pulse 66 08/27/18 23:52 Resp 16 08/27/18 23:52 BP 134/80 08/27/18 23:52 Pulse Ox 100 08/27/18 23:52 - Medical History PMH: Anemia, Depression, Diabetes - Surgical History Surgical History: Appendectomy, Cholecystectomy, - Family History Family History: States: Unknown Family Hx - Living Arrangements Living Arrangements: With Family - Social History Current smoker - smoking cessation education provided: No Alcohol: None Drugs: Denies - Home Medications Home Medications: Ambulatory Orders Medication Instructions Recorded Cyclobenzaprine [Cyclobenzaprine 10 mg PO BID #14 tab 10/25/15 HCl] Ibuprofen [Motrin] 400 mg PO Q6 #30 tab 10/25/15 metFORMIN [glucOPHAGE] 500 mg PO DAILY 10/25/15 Ferrous Sulfate [Feosol] 325 mg PO TID #15 tab 07/25/16 Dicyclomine [Dicyclomine HCl] 10 mg PO QID PRN #15 cap 03/07/17 Ondansetron [Zofran Odt] 4 mg PO ASDIR PRN #15 odt 03/07/17 Dicyclomine [Bentyl] 20 mg PO Q12 PRN #20 tab 03/08/17 Meclizine [Meclizine*] 25 mg PO TID PRN #21 tab 03/25/17 Naproxen [Naprosyn] 500 mg PO Q12 PRN #20 tablet 03/25/17 Docusate Sodium [Colace] 100 mg PO BID #30 capsule 12/14/17 Nitrofurantoin Macrocrystals 100 mg PO BID #14 cap 12/14/17 [Macrobid] Albuterol Sulfate [Proair Hfa] 0.09 mg IH Q6 PRN #1 inh 06/03/18 Azithromycin [Zithromax] 250 mg PO QAM #1 pkg 06/03/18 Benzonatate [Tessalon Perle] 100 mg PO TID PRN #15 capsule 06/03/18 predniSONE [predniSONE Tab] 60 mg PO QAM #12 tab 06/03/18 Famotidine [Pepcid] 20 mg PO Q12 #14 tab 08/28/18 Methylprednisolone [Medrol Dosepak] 4 mg PO ASDIR #1 pkg 08/28/18 - Allergies Allergies/Adverse Reactions: Allergies Allergy/AdvReac Type Severity Reaction Status Date / Time No Known Allergies Allergy Verified 06/03/18 04:39 Review of Systems ROS Statement: Except As Marked, All Systems Reviewed And Found Negative Skin: Positive for: Rash Physical Exam - Reviewed Nursing Documentation Reviewed: Yes Vital Signs Reviewed: Yes - Physical Exam Appears: Positive for: Well, Non-toxic Head Exam: Positive for: ATRAUMATIC, NORMOCEPHALIC Skin: Positive for: Normal Color, Warm, Dry, Rash ((+) diffuse urticarial rash is noted) Eye Exam: Positive for: Normal appearance, EOMI, PERRL ENT: Positive for: Normal ENT Inspection Neck: Positive for: Normal, Painless ROM Cardiovascular/Chest: Positive for: Regular Rate, Rhythm Respiratory: Positive for: Normal Breath Sounds. Negative for: Rales, Rhonchi, Wheezing Gastrointestinal/Abdominal: Positive for: Normal Exam, Bowel Sounds, Soft. Negative for: Tenderness Neurological/Psych: Positive for: Awake, Alert. Negative for: Motor/Sensory Deficits - Laboratory Results Result Diagrams: 08/28/18 03:12 08/28/18 03:12 - ECG O2 Sat by Pulse Oximetry: 100 Medical Decision Making Medical Decision Makin48 year old female with pruritic rash in setting of new medication and known diabetes IV Pepcid/Solumedrol/Benadryl ordered Labs reviewed hso no clinically significant abnormalities Patient reports marked improvement and is stable for discharge Dx Allergic Reaction to Drug Disposition - Clinical Impression Clinical Impression: Allergic reaction caused by a drug - Disposition Disposition: Routine/Home Disposition Time: 03:30 Condition: STABLE Prescriptions: Famotidine [Pepcid] 20 mg PO Q12 #14 tab Methylprednisolone [Medrol Dosepak] 4 mg PO ASDIR #1 pkg Instructions: Drug Allergy Forms: [facility] [employer] (Cuban) Print Language: STATELESS
[2018-08-28 03:19] LABS: BASO % 0.6 % (0.0-2.0); EOS # 0.2 K/uL (0.0-0.7); EOS % 2.5 % (0.0-4.0); LYMPH # 2.3 K/uL (1.0-4.3); LYMPH % 33.1 % (20.0-40.0); MEAN CELL VOLUME 82.1 fl (81.0-99.0); MEAN CORPUSCULAR HEMOGLOBIN 27.8 pg (27.0-31.0); MEAN CORPUSCULAR HGB CONC 33.9 g/dL (33.0-37.0); MEAN PLATELET VOLUME 8.1 fl (7.2-11.7); MONO # 0.5 K/uL (0.0-0.8); MONO % 7.2 % (0.0-10.0); NEUT % 56.6 % (50.0-75.0); NRBC % 0.3 % (0.0-0.0); RBC 4.31 Mil/uL (3.80-5.20); RED CELL DISTRIBUTION WIDTH 16.5 % (11.5-14.5); WHITE BLOOD COUNT 7.1 K/uL (4.8-10.8)
[2018-08-28 03:29] LABS: ALB/GLOB RATIO 1.3 (1.0-2.1); ALBUMIN 4.5 g/dL (3.5-5.0); ALT/SGPT 32 U/L (9-52); AST/SGOT 26 U/L (14-36); BLOOD UREA NITROGEN 17 mg/dl (7-17); CALCIUM 9.8 mg/dL (8.4-10.2); GFR NON-AFRICAN AMERICAN > 60
[2018-08-28] MEDS ORDERED: DiphenhydrAMINE 50 mg/ml Inj ONE (03:32)
[2018-08-28 04:30] VITALS: BP 119/60; PULSE 61; RESP 17
== END 2018-08-28 04:30 | disposition home or self-care (01) ==
LOC: H.ER 23:08
DX: T78.40XA Allergy, unspecified, initial encounter (principal); E11.9 Type 2 diabetes mellitus without complications; Z79.84 Long term (current) use of oral hypoglycemic drugs
CPT/HCPCS: 80053; 81025; 82948; 85025; 96374; 99283; J1200; J2930